=== PATIENT | female | born 1985 | race Caucasian/White ===

== ENCOUNTER 2016-02-20 13:28 | Outpatient (RCR) | payer OTHER ==
[~2016-02-20 13:28] MED LIST: ACHYD1T PO; CIPR500T78 PO; DCS100C PO; FRS325T PO; HYDR-757 PO; IBP800T PO; METR500T PO; OXYC1TAB12 PO; PREN1TAB25 PO; SULF1TAB35 PO; TAMO20TA2 PO; VENL75CA PO; VENL75TA6 PO; VNL37.5T PO; [UNRECOGNIZED DRUG - OTHER] IM
--- OUTSIDE RECORDS SUMMARY | 2016-02-20 13:31 | XMS REPORT | Continuity of Care Document ---
Author Author [facility] Organization [facility] Address Unknown Phone Unavailable Care Team Providers Care Technical Buyer Name Role Phone CliffAlicia PCP [phone] Source Comments Some departments are not documenting in the electronic medical record. If you do not see the information that you expected, contact Release of Information in the Health Information Management department at [phone] for further assistance in locating additional records.[facility] Active Allergies and Adverse Reactions Allergen Noted Date Severity Reactions Comments Codeine 10/05/2013 Low ITCHING Hydrocodone 06/16/2013 Low ITCHING Vancomycin 02/02/2015 Low SEE COMMENTS Red man's syndrome Current Medications Prescription Sig. Disp. Refills Start End Date Status Date ibuprofen (MOTRIN) 800 mg Take 1 Tab by mouth every 30 Tab 1 03/08/19 Active tablet 8 hours as needed for 16 Pain. letrozole (FEMARA) 2.5 mg Take 2 mg by mouth daily. Active tablet buPROPion XL (WELLBUTRIN Take 150 mg by mouth Active XL) 150 mg tablet every morning. Active Problems Problem Noted Date Acquired absence of bilateral breasts and nipples 12/26/2013 Breast cancer, left 06/16/2013 Adnexal mass 05/16/2013 Overview: Studies as noted above show a hypermetabolic mass in the left ovary. PLAN: Ultrasound of the pelvis- to do in [place]. Evaluate the ovaries. Await BRCA testing If negative, operiatve laparoscopy if persistent cyst. Determine follow up with surgical oncology with respect to her RV. Obtain ultrasound at that time as well. Breast cancer (HCC) 05/03/2013 Overview: Diagnoses: 1. 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 BRCA negative per patient (drawn at outside facility) Procedure: 1. Bilateral nipple sparing mastectomy/left SLNB/Lucia, 10/05/13 2. Exchange of Lucia for silicone implants, 02/10/2014 3. Revision with bilateral fat grafting, 05/12/2014 History: Ms. Avila (goes by "Evonne") is a 28 yo, female who [facility] 05/03[facility]2013 for evaluation of her left breast cancer. She had her second child in May 2012 and a few months later she noticed a mass in her left breast. 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 A left breast ultrasound showed a mass and sono-guided biopsy 04/13/13 revealed and IDC, grade 3, ER+/VA-/Her2- with extensive high grade, DCIS. Bilateral diagnostic mammograms after the biopsy did not show any other suspicious findings, other than the known cancer, and a right breast ultrasound (due to the dense breast tissue on mammogram) also showed no suspicious findings in the right breast. Ms. Avila saw Dr. Mckeon on 04/29/13; neoadjuvant chemotherapy with Taxotere/Carbo every 3 weeks followed by Adriamycin/Cytoxan every 2 weeks x4 was recommended. She received chemotherapy with Dr. Rodriguez in [place], [place], closer to her home. Outside PET CT showed a left ovarian mass and Dr. Mckeon scheduled her for a consult with Dr. Sanders. Dr. Sanders advised following with ultrasound pending genetic testing. The patient had follow-up pelvic ultrasound closer to home and reports that the ovarian cyst resolved (this report is not available for review). She underwent bilateral nipple sparing mastectomy/left SLNB 10/05/13. Surgical pathology showed 7 mm residual tumor in a 1.5 cm tumor bed and there was 10-20% viability; there were 4 negative SLNs. There was no evidence of malignancy in the right breast. Breast Imaging: Mammogram: Bilateral diagnostic mammograms 04/22/13 ([facility] showed a 3.2 cm mass in the upper outer left breast with a cluster of heterogeneous microcalcifications within the mass; no other suspicious findings were seen, but the breast tissue was noted to be heterogeneously dense. Ultrasound: Left breast ultrasound 03/23/13 ([facility]) showed a 2.5 cm lobulated mass at 2:30, zone C; BIRAD 4. Right breast ultrasound 04/22/13 showed no suspicious findings. Left breast ultrasound 06/11/13 revealed mass at 2:30, 5cm FTN measuring 1.9x1.0x1.9cm and left axilla appearing normal. Left breast ultrasound 09/15/13 showed mild decrease in size of patient's known malignancy at 2:30, 5cm FTN, measuring [id number]. Normal appearing lymph nodes of left axilla. Left breast ultrasound (07/16/13) revealed mass at 2:30, 5cm FTN has decreased in size measuring 1.4x0.9x1.6cm and left axilla remains normal. Staging Studies: PET CT scan 04/27/13 ([facility]) showed a 3 cm mass in the left breast and a hypermetabolic lesion in the left side of the pelvis that appeared to be superimposed in the left adnexa; no hypermetabolic lymph nodes or metastatic lesions were seen in the solid organs. Pelvic ultrasound was recommended. Pertinent PMH: Negative Family History: Negative for breast, ovarian, and prostate cancer Reproductive health: Age at first Menarche: 10 Age at First Live : 24 Age at Menopause: premenopausal : 2 Para: 2 : N/A Physical Exam on Presentation: Right breast- 3 cm mass at 2:00, 6 cm FTN. Left breast- no palpable masses. No axillary, infraclavicular, or supraclavicular adenopathy. Medical Oncology: Dr. Mckeon and Dr. Collado ([place], [place]) Neoadjuvant chemotherapy: Taxotere/Carbo Q 3 weeks followed by Adriamycin/Cytoxan Q 2 weeks x4 Present Therapy: Tamoxifen Referred by: Dr. Mckeon Social History Tobacco Use Types Packs/Day Years Used Date Never Smoker Smokeless Tobacco: Never Used Alcohol Use Drinks/Week oz/Week Comments Yes socially/rarely Last Filed Vital Signs Vital Sign Reading Time Taken Blood Pressure 98/59 05/31/2015 2:01 PM CDT Pulse 100 05/31/2015 2:01 PM CDT Temperature 36.7 C (98 F) 05/31/2015 2:01 PM CDT Respiratory Rate 16 05/31/2015 2:01 PM CDT Height 1.676 m (5' 6") 05/31/2015 2:01 PM CDT Weight 67.132 kg (148 lb) 05/31/2015 2:01 PM CDT Body Mass Index 23.9 05/31/2015 2:01 PM CDT Oxygen Saturation 99% 02/20/2015 5:00 PM [employer] Plan of Care Health Maintenance Due Date Last Done Comments Physical (Comprehensive) 12/22/1990 Exam Pertussis Vaccine 12/22/1994 Tetanus Vaccine 12/22/2000 Cervical Cancer Screening 12/22/2004 Influenza Vaccine 11/02/2015 Results from Last 3 Months Not on file
[2016-02-20 13:42] LABS: BASOPHILS % (AUTO) 1 % (0-10); EOSINOPHILS # (AUTO) 0.2 10^3/uL (0.0-0.3); EOSINOPHILS % (AUTO) 4 % (0-10); LYMPHOCYTES % (AUTO) 34 % (12-44); MEAN CORPUSCULAR HEMOGLOBIN 30 PG (25-34); MEAN CORPUSCULAR HGB CONC 35 G/DL (32-36); MEAN CORPUSCULAR VOLUME 88 FL (80-99); MEAN PLATELET VOLUME 10.8 FL (7.4-10.4); MONOCYTES # (AUTO) 0.5 X 10^3 (0.0-1.0); MONOCYTES % (AUTO) 8 % (0-12); NEUTROPHILS # (AUTO) 3.2 X 10^3 (1.8-7.8); NEUTROPHILS % (AUTO) 54 % (42-75); PLATELET COUNT 221 10^3/uL (130-400); RED BLOOD COUNT 4.31 10^6/uL (4.35-5.85); RED CELL DISTRIBUTION WIDTH 13.1 % (10.0-14.5)
[2016-02-20 14:09] LABS: ALANINE AMINOTRANSFERASE 15 U/L (0-55); ALBUMIN 4.7 G/DL (3.2-4.5); ANION GAP 6 MMOL/L (5-14); ASPARTATE AMINO TRANSFERASE 21 U/L (5-34); BILIRUBIN,TOTAL 0.4 MG/DL (0.1-1.0); BLOOD UREA NITROGEN 12 MG/DL (7-18); BUN/CREATININE RATIO 19; CALCIUM 9.6 MG/DL (8.5-10.1); CARBON DIOXIDE 30 MMOL/L (21-32); CHLORIDE 102 MMOL/L (98-107); CREATININE SERUM 0.64 MG/DL (0.60-1.30); GFR ESTIMATED > 60; GLUCOSE 90 MG/DL (70-105); POTASSIUM 3.9 MMOL/L (3.6-5.0); SODIUM 138 MMOL/L (135-145)
== END 2016-05-20 | disposition home or self-care (01) ==
LOC: ONC 13:28
PROVIDERS: ATTEND Internal Medicine Hematology & Oncology
DX: C50.212 Malignant neoplasm of upper-inner quadrant of left female breast (principal); Z17.0 Estrogen receptor positive status [ER+]; Z79.810 Long term (current) use of selective estrogen receptor modulators (SERMs)
CPT/HCPCS: 36415; 80053; 85025; 99213

== ENCOUNTER → 2016-03-25 | Outpatient (CLI) | payer OTHER ==
[~2016-03-25] MED LIST changes: +BARIUM SUSPENSION 2.1% (VANILLA SILQ) 450 ML PO ONE; +CATHETER FLUSH 10 ML SYR IV PRN; +IOHEXOL 350 MG/ML 100 ML (OMNIPAQUE 350) VIAL IV ONE; +NS 100 ML (IVPB) BAG IV ONE
--- OUTSIDE RECORDS SUMMARY | 2016-03-25 10:51 | XMS REPORT | Continuity of Care Document ---
Author Author [facility] Organization [facility] Address Unknown Phone Unavailable Care Team Providers Care Cardiac Catheterization Technologist Name Role Phone CliffAlicia PCP [phone] Source Comments Some departments are not documenting in the electronic medical record. If you do not see the information that you expected, contact Release of Information in the Health Information Management department at [phone] for further assistance in locating additional records.[facility] Active Allergies and Adverse Reactions Allergen Noted [...] Ultrasound of the pelvis- to do in [place]. Evaluate the ovaries. Await BRCA testing If negative, operiatve laparoscopy if persistent cyst. Determine follow up with surgical oncology with respect to her RV. Obtain ultrasound at that time as well. Breast cancer (HCC) 05/03/2013 Overview: Diagnoses: 1. Left IDC, grade 3 (ER5%, HI 0%, HER2 1+, Ki67 85%) with extensive [...] biopsy 04/13/13 revealed and IDC, grade 3, ER+/HI-/Her2- with extensive high grade, DCIS. Bilateral diagnostic [...] She received chemotherapy with Dr. Rodriguez in [place], [place], closer to her home. Outside PET [...] Imaging: Mammogram: Bilateral diagnostic mammograms 04/22/13 ([facility]) showed a 3.2 cm mass in the [...] known malignancy at 2:30, 5cm FTN, measuring [id number]. Normal appearing lymph nodes of left axilla. [...] Medical Oncology: Dr. Mckeon and Dr. Collado ([place], [place]) Neoadjuvant chemotherapy: Taxotere/Carbo Q 3 weeks [...] CDT Oxygen Saturation 99% 02/20/2015 5:00 PM [employer] Plan of Care Health Maintenance Due Date Last Done Comments Physical (Comprehensive) 12/22/1990 Exam Pertussis Vaccine 12/22/1994 Tetanus Vaccine 12/22/2000 Cervical Cancer Screening 12/22/2004 Influenza Vaccine 11/02/2015 Results from Last 3 Months Not on file
--- NOTE | 2016-03-25 12:05 | Diagnostic Imaging Report ---
PROCEDURE: CT chest and abdomen with contrast. TECHNIQUE: Multiple contiguous axial images were obtained through the chest and abdomen after the administration of intravenous contrast. INDICATION: Breast carcinoma, weight loss. FINDINGS: The previous CT chest exam performed on 11/09/2014 failed to show any sign of neoplastic disease. There was a 3 cm fluid collection in the left axilla. This was subsequently drained with ultrasound guidance on 11/09/2014. On this study, there is no sign of recurrent fluid accumulation in the left axilla. The images through the thorax show that the heart size is within normal limits and stable when compared to the prior exam. There is no defect within the pulmonary arteries to indicate a pulmonary embolus, and the aorta is not abnormally dilated. There is no mediastinal or hilar adenopathy noted. There is a small triangular soft tissue density in the anterior mediastinum. This was present on the prior exam and has not changed. Most likely, this is due to residual thymic tissue. The thyroid gland, where visualized, is unremarkable. The lungs are generally clear and well aerated. There is no sign of failure, pneumonia, or pleural effusion to suggest an acute abnormality. There is no parenchymal lung mass to indicate metastatic disease either. The bilateral breast implants seen previously are again evident and stable. The images through the abdomen fail to show any sign of an acute abnormality. The liver is homogeneous and not enlarged. Spleen, pancreas, adrenals, kidneys, gallbladder, aorta, and inferior vena cava are unremarkable for an acute abnormality. The stomach is partially filled with oral contrast and consequently difficult to assess. There is no mass or free fluid collection noted. The bone window show no evidence for a fracture or for a destructive lesion. IMPRESSION: 1. There is no evidence for an acute abnormality or for neoplastic disease. 2. The fluid collection in the left axilla seen on the prior exam is no longer evident. Dictated by: Dictated on workstation # [id number]
--- NOTE | 2016-03-25 15:21 | Diagnostic Imaging Report ---
Whole-body Bone scan INDICATION: Breast cancer. TECHNIQUE: This study was performed following administration of 25.9 mCi of 99m-technetium MDP. Anterior and posterior whole-body images were obtained. FINDINGS: The previous whole-body bone scan of 03/09/2014 failed to show any abnormal uptake that would indicate metastatic disease. Reportedly, in the interval since the prior study, the patient has suffered a fracture of the left wrist. There is intense uptake of the radiotracer in this area consistent with the recent bony injury. There is also now a new small focus of increased activity in the lower sacrum on the right on the posterior images. Whether this is also related to recent trauma or to a new metastatic focus is not certain. Correlation with the patient's history would be recommended. There is no other abnormal uptake identified to suggest neoplastic disease. Both kidneys do show excretion of the radiotracer. IMPRESSION: 1. The abnormal uptake in the left wrist would coincide with the patient's history of a recent left wrist fracture. However, whether the small focus of increased activity along the inferior aspect of the right sacrum is due to recent trauma or to metastatic disease is not certain. Clinical followup is recommended. 2. There is no other abnormal uptake to suggest metastatic disease. Dictated by: Dictated on workstation # [id number]
== END ==
LOC: CARD 10:47
PROVIDERS: ATTEND Internal Medicine Hematology & Oncology
DX: C50.412 Malignant neoplasm of upper-outer quadrant of left female breast (principal)
CPT/HCPCS: 71260; 74160; 78306

== ENCOUNTER → 2016-07-25 | Outpatient (CLI) | payer OTHER ==
[~2016-07-25] MED LIST changes: -BARIUM SUSPENSION 2.1% (VANILLA SILQ) 450 ML PO ONE; -CATHETER FLUSH 10 ML SYR IV PRN; -IOHEXOL 350 MG/ML 100 ML (OMNIPAQUE 350) VIAL IV ONE; -NS 100 ML (IVPB) BAG IV ONE
--- NOTE | 2016-07-25 10:39 | Diagnostic Imaging Report ---
Ultrasound of the neck. INDICATION: Left submandibular lump. FINDINGS: There is a hypoechoic smoothly marginated elongated nodule seen measuring 0.9 x 0. 8 x 0.3 CM noted in the left submandibular region superficial to the submandibular gland. IMPRESSION: The palpable lesion appears to relate to a nonspecific subcentimeter lymph node superficial to the left submandibular gland. Dictated by: Dictated on workstation # [id number]
== END ==
LOC: RAD 09:25
PROVIDERS: ATTEND Family Medicine
DX: R22.1 Localized swelling, mass and lump, neck (principal)
CPT/HCPCS: 76536